=== PATIENT | female | born 1940 | race Caucasian/White ===

== ENCOUNTER → 2016-11-24 | Outpatient (CLI) | payer BC ==
[~2016-11-24] MED LIST: ACET325T96 PO; AMIN1TAB PO; CRD200 PO; DOCU100C31 PO; ENOX40IN SQ; LEVO75TA5 PO; OXYC-57 PO; PRLSR20 PO; SENN-61 PO; TRAM-10 PO
[2016-11-24 12:07] LABS: BASO % 0.2 %; BASO ABS # 0.01 K/uL (0-0.2); COMPLETE YES; EOS % 2.1 %; HEMATOCRIT 39.2 % (37-47); IG% 0.2 %; LYMPH % 22.7 %; LYMPH ABS # 0.96 K/uL (1.2-3.4); MEAN CELL VOLUME 93.6 fL (80-100); MEAN CORPUSCULAR HEMOGLOBIN 30.8 pg (25-34); MEAN CORPUSCULAR HGB CONC 32.9 g/dl (32-36); MEAN PLATELET VOLUME 11.4 fL (7.4-10.4); MONO % 16.1 %; NEUT % 58.7 %; PLATELET COUNT 144 K/uL (130-400); RED BLOOD COUNT 4.19 M/uL (4.2-5.4); WHITE BLOOD COUNT 4.23 K/uL (4.8-10.8)
[2016-11-24 12:42] LABS: AST/SGOT 15 U/L (15-37); BLOOD UREA NITROGEN 30 mg/dl (7-18); BUN/CREATININE RATIO 38.3 (10-20); CALCIUM 8.6 mg/dl (8.5-10.1); CARBON DIOXIDE 29 mmol/L (21-32); CHLORIDE 97 mmol/L (98-107); CREATININE 0.78 mg/dl (0.60-1.20); GLUCOSE 78 mg/dl (70-99); POTASSIUM 4.8 mmol/L (3.5-5.1); SODIUM 135 mmol/L (136-145)
[2016-11-24 12:52] LABS: ALB/GLOB RATIO 1.1 (0.9-2); ALKALINE PHOSPHATASE 76 U/L (45-117); ALT/SGPT 17 U/L (12-78)
--- NOTE | 2016-11-28 09:44 | CODING QUERY MEDICAL NECESSITY ---
SUPPORTING DIAGNOSIS NEEDED Dr. German, A supporting diagnosis is required for the test/procedure performed on this patient in order for us to be reimbursed by the patient's insurance. Please provide a supporting diagnosis for the following test/procedure listed below next to the test name along with your signature. *If there is no additional diagnosis for this patient that would support the following test/procedure please document that below next to the test/procedure. Test(s)/Procedure(s) that require a supporting diagnosis: * ([id number]) VITAMIN D ASSAY DIAGNOSIS: DATE OF SERVICE: 11/24/16 Provider Signature: Date: Thank you [facility] Information Management Once completed, please kindly fax back to [phone] For questions please call [phone]
== END | disposition home or self-care (01) ==
LOC: C.LAB 10:41
PROVIDERS: ATTEND Internal Medicine
DX: M85.80 Other specified disorders of bone density and structure, unspecified site (principal); E55.9 Vitamin D deficiency, unspecified

== ENCOUNTER → 2017-05-14 | Outpatient (CLI) | payer BC ==
[2017-05-14 12:33] LABS: BLOOD UREA NITROGEN 23 mg/dl (7-18); CALCIUM 8.6 mg/dl (8.5-10.1); CARBON DIOXIDE 31 mmol/L (21-32); CHLORIDE 92 mmol/L (98-107); CREATININE 0.71 mg/dl (0.60-1.20); GLUCOSE 89 mg/dl (70-99); POTASSIUM 4.1 mmol/L (3.5-5.1); SODIUM 127 mmol/L (136-145)
== END | disposition home or self-care (01) ==
LOC: C.LAB1850 10:08
PROVIDERS: ATTEND Internal Medicine
DX: E55.9 Vitamin D deficiency, unspecified (principal)

== ENCOUNTER → 2017-11-24 | Outpatient (CLI) | payer BC ==
[~2017-11-24] MED LIST changes: +ACET-1693 PO; -ACET325T96 PO
[2017-11-24 10:24] LABS: BASO % 0.2 %; BASO ABS # 0.01 K/uL (0-0.2); EOS % 3.3 %; EOS ABS # 0.15 K/uL (0-0.5); HEMATOCRIT 40.5 % (37-47); HEMOGLOBIN 13.1 g/dL (12.0-16.0); IG# 0.01 K/uL (0.00-0.02); LYMPH % 20.2 %; LYMPH ABS # 0.91 K/uL (1.2-3.4); MEAN CELL VOLUME 89.6 fL (80-100); MEAN CORPUSCULAR HGB CONC 32.3 g/dl (32-36); MEAN PLATELET VOLUME 10.2 fL (7.4-10.4); MONO % 14.9 %; MONO ABS # 0.67 K/uL (0.11-0.59); NEUT % 61.2 %; NEUT ABS # 2.75 K/uL (1.4-6.5); PLATELET COUNT 181 K/uL (130-400); RED CELL DISTRIBUTION WIDTH SD 45.7 fL (36.4-46.3)
[2017-11-24 11:02] LABS: ALBUMIN 3.5 gm/dl (3.4-5.0); ALT/SGPT 13 U/L (12-78); AST/SGOT 11 U/L (15-37); BLOOD UREA NITROGEN 25 mg/dl (7-18); CALCIUM 8.9 mg/dl (8.5-10.1); CARBON DIOXIDE 30 mmol/L (21-32); CREATININE 0.59 mg/dl (0.60-1.20); GLUCOSE 79 mg/dl (70-99); POTASSIUM 4.1 mmol/L (3.5-5.1); SODIUM 129 mmol/L (136-145); TOTAL PROTEIN 7.4 gm/dl (6.4-8.2)
[2017-11-24 11:16] LABS: ALKALINE PHOSPHATASE 109 U/L (45-117)
== END | disposition home or self-care (01) ==
LOC: C.LAB 09:31
PROVIDERS: ATTEND Internal Medicine
DX: R53.81 Other malaise (principal); E53.8 Deficiency of other specified B group vitamins

== ENCOUNTER 2020-02-10 08:15 | Observation (INO) ==
--- NOTE | 2020-02-10 08:37 | Emergency Department Note ---
Impression & Plan Large bowel obstruction, Abdominal pain, Thrombocytopenia, Chronic hyponatremia, Elevated INR ED Provider Note NAME: NATALYA LORENZO AGE: 79 SEX: F ARRIVES VIA: Walk-In INFORMANT: Patient, ED PROVIDER(S): Jaren Lyn MD CHIEF COMPLAINT: Abdominal pain PLAN: Disposition: Admit MEDICAL DECISION MAKING: The patient is a pleasant 79-year-old woman with a past medical history of hypertension, chronic hyponatremia, hypothyroidism, history of MRSA bacteremia with left knee prosthesis infection and mitral valve endocarditis in 2013 status post mitral valve replacement with [facility] bioprosthetic valve in 09/2014, history of dementia who presents emergency department coming by her for evaluation of abdominal pain began acutely last night and into this morning. The denies any nausea or vomiting. He reports she had a normal bowel movement this morning was nonbloody nonblack. Denies Fever, cough, congestion, urinary symptoms. On arrival the patient is uncomfortable no acute distress, afebrile stable vital signs. The patient appears clinically dry. She does have a distended abdomen that is tympanitic with moderate tenderness without guarding or rebound. EKG without evidence of acute ischemia. CXR demonstrates distension of large bowel. WBC 4.2. H/H within normal limits. Platelets 94K decreased from recent values. INR 2.0 which could be related to vitamin K deficiency poor nutrition versus component of liver injury with total bilirubin 2.2 and direct bilirbuin 0.9 though AST, ALT, and AP are unremarkable. Troponin negative/undetectable. CT abdomen pelvis was performed and demonstrated marked distention of large bowel/transverse colon and splenic flexure with apparent transition point of the proximal to mid descending colon without identifiable cause. Case was discussed with general surgery on-call Dr. Reyes, who recommends admission to medicine with GI consultation for possible colonoscopy, will be available for inpatient team consultation however he explains these findings are typically nonsurgical. Recommendations for NG tube appreciated and ordered. I did review the findings with the patient and at the bedside and he does confirm that the patient is DNR/DNI and would have to assess any invasive interventions on a [id number] basis and with discussion with his sons keeping in mind his 's goals of care. Case was discussed with Dr. Stevenson, [facility] [place], who will evaluate the patient for admission. Triage Nursing notes reviewed and agree them. Additional history obtained from Prior medical records reviewed Vital Signs: reviewed and remarkable for no significant abnormalities Differential diagnosis: Appendicitis, ovarian cyst, ovarian torsion, ectopic , TOA, PID, infections, diverticulitis, UTI, obstruction, mesenteric ischemia, aortic pathology, inflammatory bowel disease, renal colic, PUD, pancreatitis, biliary pathology, hernia, volvulus, constipation, as well as other pathologies. ER treatment provided: See below. Diagnostics interpreted by me: ECG: Normal sinus rhythm with First degree AVB, 82bpm, Incomplete RBBB, no ectopy, no overt ST elevation or depression. Cardiac Monitoring: An order for continuous cardiac monitoring was placed and demonstrated, 82 bpm, No ectopy. Laboratory studies: See below Imaging studies: XR chest 1V portable CLINICAL HISTORY: 79 years-old Female presenting with Chest Pain. TECHNIQUE: Portable upright AP view of the chest was obtained. COMPARISON: 11/15/2014. FINDINGS: Significant elevation of the right hemidiaphragm which was likely present on the prior exam. Elevation of the left hemidiaphragm as on prior. Resulting low lung volumes. Median sternotomy wires. Atherosclerosis of the aortic arch. Cardiac silhouette is likely enlarged. Pulmonary vascular prominence and bilateral hilar prominence suboptimally evaluated due to hemidiaphragm elevation. Mild central added density of the lungs. No large effusion or pneumothorax. Osteopenia. De generative changes of the glenohumeral joints and spine. Severe gaseous distention of large bowel. The appearance is not definitive for pneumoperitoneum. Cholecystectomy clips noted. IMPRESSION: 1. Severe gaseous distention of large bowel suspected. The degree of gas below the diaphragm makes pneumoperitoneum difficult to exclude. If there are abdominal symptoms, consider further evaluation with cross-sectional imaging of the abdomen or pelvis. 2. Low lung volumes. 3. Suspected pulmonary vascular prominence. Some degree of vascular crowding may account for the appearance. 4. Limited evaluation due to the degree of hemidiaphragm elevation. -- CT OF THE ABDOMEN AND PELVIS WITH CONTRAST CLINICAL HISTORY: Acute generalized abdominal pain. COMPARISON STUDY: CT of the abdomen and pelvis July 16, 2015. KUB December 18, 2019. TECHNIQUE: Following IV administration of 94 mL of Optiray-320, axial images of the abdomen and pelvis were obtained from the lung bases to the proximal femurs. Images were reviewed in the axial, sagittal, and coronal planes. IV contrast was administered without complication. Automated exposure control was utilized for the study. A dose lowering technique was utilized adhering to the principles of ALARA. CT DOSE: 379.92 mGy.cm FINDINGS: Note is made of marked elevation of the right hemidiaphragm and moderate elevation of the left hemidiaphragm. Associated lower lung airspace opacities favor atelectasis. There is mild dilatation of the central pulmonary arteries. No pneumatosis, free air or portal venous gas is present. No bowel wall thickening is noted. No ascites. The course of the colon is difficult to follow on this exam however the cecum is likely within the right upper quadrant. No swirling of the mesentery or abrupt transition point is noted to suggest a volvulus. There is marked gaseous distention of the transverse colon measuring approximately 13.2 cm in caliber. There is mild distention of the cecum which contains stool. Apparent transition point within the proximal to mid descending colon is noted without identifiable cause. The caliber of the distal descending colon, sigmoid colon and rectum is normal. There is colonic diverticulosis without evidence for acute diverticulitis. There is minimal mesenteric infiltration. Heterogeneity of the liver parenchyma, particularly the lateral segment, is noted. The spleen, adrenal glands, kidneys and pancreas are unremarkable. There is no hydronephrosis. There is no pancreatic ductal dilatation. Mild dilatation of the main pancreatic duct is likely related to previous cholecystectomy. There is evidence for mild volume overload. Small stones within the left lateral aspect of the bladder are noted. No suspicious osseous lesions are present. Prominent left pelvic lymph nodes have slightly decreased in size since CT of July 16, 2015. These are likely benign. IMPRESSION: 1. Marked gaseous distention of the transverse colon and splenic flexure with apparent transition point within the proximal to mid descending colon without identifiable cause. The findings could reflect a colonic pseudoobstruction or mechanical large bowel obstruction due to an occult abnormality. No pneumatosis, free air or portal venous gas. Minimal mesenteric infiltration. No bowel wall thickening. 2. Heterogeneity of the liver parenchyma, particularly the left hepatic lobe. This may be related to right heart dysfunction. 3. Multiple small bladder calculi. Consultation(s): Dr. Reyes, General surgery on-call. Dr. Stevenson, [facility] [place]. HPI: The patient is a pleasant 79-year-old woman with a past medical history of hypertension, chronic hyponatremia, hypothyroidism, history of MRSA bacteremia with left knee prosthesis infection and mitral valve endocarditis in 2014 status post mitral valve replacement with [facility] Reyes's bioprosthetic valve in 09/2014, history of dementia who presents emergency department coming by her for evaluation of abdominal pain began acutely last night and into this morning. The denies any nausea or vomiting. He reports she had a normal bowel movement this morning was nonbloody nonblack. Denies Fever, cough, congestion, urinary symptoms. ROS: See above HPI for pertinent positives & negatives. A total of 10 systems reviewed and were otherwise negative. PAST MEDICAL HISTORY:See Below PAST SURGICAL HISTORY:See Below FAMILY HISTORY:See Below SOCIAL HISTORY:See Below HOME MEDICATIONS:See Below ALLERGIES:See Below VITALS:See Below PHYSICAL EXAMINATION: GENERAL: Awake, alert, uncomfortable-appearing, in no distress HENT: Normocephalic, atraumatic. Oropharynx with dry mucous membranes and otherwise unremarkable. EYES: Normal conjunctiva. Sclera non-icteric. NECK: Supple. No nuchal rigidity. FROM. No JVD. RESPIRATORY: Clear to auscultation. CARDIAC: Regular rate, normal rhythm. Extremities warm and well perfused. Pulses equal. ABDOMEN: Moderate abdominal distention with moderate tenderness and tympany without rebound or guarding. RECTAL: Deferred. MUSCULOSKELETAL: Chest examination reveals no tenderness. The back is symmet rical on inspection without obvious abnormality. There is no CVA tenderness to palpation. No joint edema. LOWER EXTREMITIES: Calves are equal size bilaterally and non-tender. 2+ BLE edema. No discoloration. NEURO: Normal sensorium. No sensory or motor deficits noted. SKIN: No rash or jaundice noted. Jaren Lyn MD Past Med/Surg History Medical History Debilitated patient (Acute) HTN (hypertension) (Acute) Hypoglycemia (Inactive 06/04/14) Hyponatremia (Acute) Hypothyroidism (Acute) Hypoxia (Inactive 08/28/14) Left leg cellulitis (Inactive) Mild cognitive impairment (Chronic) Teresa-prosthetic femoral shaft fracture (Acute) Pneumonia (Inactive 08/28/14) Proctitis (Inactive) SIRS (systemic inflammatory response syndrome) (Inactive 08/28/14) Urinary tract infection (Resolved) Vitamin B12 deficiency (dietary) anemia (Acute) Vitamin D deficiency (Acute) Surgical History History of arthroplasty of knee History of cataract surgery History of cholecystectomy History of heart valve replacement Family History Sister Myocardial infarction Mother Diabetes Heart disease Father Heart disease Brother Hypertension Cancer of kidney Social History Preferred Language: Swedish Communication Ability: Effective Communication Ability Comment: history of Alzheimer's 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 Beliefs That Will Affect Care: None marital status: Current Living Situation: Spouse Other Information That Helps Us Care for You: No Feels Safe at Home: Yes Safety Concerns: Feels Safe At This Time Smoking Status: Never smoker Do You Dip or Chew Tobacco: No ; Second Hand Exposure: No ; Tobacco Cessation Education Requested by Patient: No Hx Alcohol Use: No Hx Substance Use: No Allergies Allergies Allergy/AdvReac Type Severity Reaction Status Date / Time trazodone Allergy Mild rash Unverified 02/10/20 10:07 citalopram [From Celexa] Allergy Unknown Unknown Unverified 02/10/20 10:07 clonazepam [From Klonopin] Allergy Unknown Unknown Unverified 02/10/20 10:07 Sulfa (Sulfonamide Allergy Unknown Unknown Unverified 02/10/20 10:07 Antibiotics) olmesartan [From Benicar] AdvReac Mild GI upset Unverified 02/10/20 10:07 penicillin G AdvReac Mild GI UPSET Verified 02/10/20 10:07 Home Meds Home Medications Medication Instructions Recorded Confirmed cholecalciferol (vitamin D3) 50 mcg PO QAM 12/18/19 02/10/20 [Vitamin D3] levothyroxine 75 mcg PO QAM 12/18/19 02/10/20 Results & Data (ED) Vital Signs Vital Signs - 24 hr 02/10/20 08:19 02/10/20 08:44 02/10/20 08:47 Temperature Source Oral Pulse Rate 88 Pulse Rate [Right] 87 Pulse Rate from SpO2 Sensor Respiratory Rate 20 20 Respiratory Effort / Characteristics Non-Labored Spontaneous Respiratory Depth Normal Blood Pressure 208/141 H Blood Pressure [Right Arm] 201/143 H Blood Pressure Mean 163 Blood Pressure Mean [Right Arm] 162 Pulse Oximetry 92 90 Oxygen Delivery Method Room Air Room Air Room Air Sepsis Recent Fever Within 48 Hours No Sepsis Action Taken by Nursing No Action Required 02/10/20 09:33 02/10/20 10:31 02/10/20 11:00 Temperature Source Pulse Rate 72 Pulse Rate [Right] 84 74 Pulse Rate from SpO2 Sensor 72 Respiratory Rate 16 16 14 Respiratory Effort / Characteristics Respiratory Depth Blood Pressure 145/63 H Blood Pressure [Right Arm] 154/88 H 143/90 H Blood Pressure Mean 88 Blood Pressure Mean [Right Arm] 110 107 Pulse Oximetry 100 Oxygen Delivery Method Sepsis Recent Fever Within 48 Hours Sepsis Action Taken by Nursing 02/10/20 11:30 02/10/20 12:00 Temperature Source Pulse Rate 69 68 Pulse Rate [Right] Pulse Rate from SpO2 Sensor 69 68 Respiratory Rate 11 L 22 Respiratory Effort / Characteristics Respiratory Depth Blood Pressure 107/58 L 127/72 Blood Pressure [Right Arm] Blood Pressure Mean 78 91 Blood Pressure Mean [Right Arm] Pulse Oximetry 100 99 Oxygen Delivery Method Sepsis Recent Fever Within 48 Hours Sepsis Action Taken by Nursing Laboratory Data Attestation: I reviewed the patient's lab results. Result diagrams: 02/10/20 08:40 02/10/20 08:40 Lab Results 02/10/20 02/10/20 02/10/20 Range/Units 08:40 08:40 08:40 WBC 4.22 L (4.8-10.8) K/uL RBC 4.85 (4.2-5.4) M/uL Hgb 14.4 (12.0-16.0) g/dL Hct 42.9 (37-47) % MCV 88.5 (80-100) fL MCH 29.7 (25-34) pg MCHC 33.6 (32-36) g/dL RDW Std Deviation 47.7 H (36.4-46.3) fL RDW Coeff of Grayson 14.7 H (11.5-14.5) % Plt Count 94 L (130-400) K/uL MPV 12.4 H (7.4-10.4) fL Immature Gran % (Auto) 0.0 % Neut % (Auto) 50.1 % Lymph % (Auto) 30.8 % Berks % (Auto) 18.2 % Eos % (Auto) 0.9 % Baso % (Auto) 0.0 % Immature Gran # (Auto) 0.00 (0.00-0.02) K/uL Neut # (Auto) 2.11 (1.4-6.5) K/uL Lymph # (Auto) 1.30 (1.2-3.4) K/uL Berks # (Auto) 0.77 H (0.11-0.59) K/uL Eos # (Auto) 0.04 (0-0.5) K/uL Baso # (Auto) 0.00 (0-0.2) K/uL Absolute Nucleated RBC 0.03 H (0-0) K/uL Nucleated RBC % (auto) 0.7 % Platelet Estimate Decreased L (Normal) PT 19.9 H (9.0-12.0) Seconds INR 2.0 H (0.9-1.1) APTT 31.9 H (21.0-31.0) Seconds PTT Ratio 1.1 Sodium 126 L (136-145) mmol/L Potassium 4.3 (3.5-5.1) mmol/L Chloride 89 L (98-107) mmol/L Carbon Dioxide 32 (21-32) mmol/L Anion Gap 5.0 (3-11) BUN 18 (7-18) mg/dl Creatinine 0.56 L (0.6-1.2) mg/dl Est Cr Clr Drug Dosing Not Reportable Est GFR ( Amer) 103.5 Est GFR (Non-Af Amer) 89.3 BUN/Creatinine Ratio 32.0 H (10-20) Glucose 75 (70-99) mg/dl Calcium 9.6 (8.5-10.1) mg/dl Phosphorus 2.6 (2.5-4.9) mg/dl Magnesium 1.9 (1.8-2.4) mg/dl Total Bilirubin 2.2 H (0.2-1) mg/dl Direct Bilirubin 0.9 H (0-0.2) mg/dl AST 18 (15-37) U/L ALT 12 (12-78) U/L Alkaline Phosphatase 100 (45-117) U/L Troponin I < 0.015 (0-0.045) ng/ml Total Protein 8.1 (6.4-8.2) gm/dl Albumin 4.1 (3.4-5.0) gm/dl Globulin 4.0 (2.5-4.0) gm/dl Albumin/Globulin Ratio 1.0 (0.9-2) Lipase 55 L (73-393) U/L Administered Medications Heparin Sodium (Porcine) (Heparin Sodium (Porcine)) 5,000 units SQ Q12 NAGA Stop: 03/11/20 20:59 Last Admin: 02/10/20 21:43 Dose: 5,000 units Documented by: [id number] Cosigned by: [id number] Sodium Chloride (Nss 1000ml) 1,000 mls @ 80 mls/hr IV .[id number] NAGA Stop: 03/11/20 13:43 Last Admin: 02/10/20 14:02 Dose: 80 mls/hr Documented by: [id number] Discontinued Medications Sodium Chloride (Nss) 500 mls @ 999 mls/hr IV .[id number] ONE Stop: 02/10/20 09:16 Last Infusion: 02/10/20 10:45 Dose: 0 mls/hr Documented by: [id number] Admin: 02/10/20 09:29 Dose: 999 mls/hr Documented by: [id number] Famotidine (Pepcid 20mg Iv Push) 20 mg in 5 mls @ 2.5 mls/min IV NOW STA Stop: 02/10/20 08:47 Last Admin: 02/10/20 09:29 Dose: 2.5 mls/min Documented by: [id number] [facility]amin[facility] 1,000 mg in 100 mls @ 400 mls/hr IV NOW STA Stop: 02/10/20 09:00 Last Infusion: 02/10/20 09:48 Dose: 0 mls/hr Documented by: [id number] Admin: 02/10/20 09:29 Dose: 400 mls/hr Documented by: [id number] Phytonadione 5 mg/ Sodium (Chloride) 50.5 mls @ 101 mls/hr IV ONE ONE Stop: 02/10/20 14:13 Last Infusion: 02/10/20 15:00 Dose: 0 mls/hr Documented by: [id number] Admin: 02/10/20 14:02 Dose: 101 mls/hr Documented by: [id number] Ioversol (Optiray 320 100ml) 94 ml IV ONCE PRN PRN Reason: Interaction Checking Stop: 05/12/20 10:15 Last Admin: 02/10/20 10:17 Dose: 94 ml Documented by: [id number] Ondansetron HCl (Zofran) 4 mg IV NOW STA Stop: 02/10/20 08:47 Last Admin: 02/10/20 09:29 Dose: 4 mg Documented by: [id number] Blood Pressure Blood Pressure Findings: Elevated blood pressure Blood Pressure Disposition: further management by hospitalist Discharge Plan Visit Data *Final* Discharge Date/Time: 02/10/20 13:28 Chief Complaint: Abdominal Pain Stated Complaint: stomach pain ED Provider: Jaren Lyn Discharge Problem: Large bowel obstruction, Abdominal pain, Thrombocytopenia, Chronic hyponatremia, Elevated INR Patient Disposition: Admitted As Inpatient Discharge Instructions Interventions: ED Discharge Assessment Last Done: 02/10/20 13:28
[2020-02-10] MEDS ORDERED: FAMOTIDINE 20MG IV PUSH 20 MG/5 ML SYR IV STA (08:46)
[2020-02-10] MEDS ORDERED: ACETAMINOPHEN 1,000 MG/100 ML VIAL IV STA (08:46)
[2020-02-10] MEDS ORDERED: ONDANSETRON INJ 2 MG/ML 2 ML VIAL IV STA (08:46)
[2020-02-10] MEDS ORDERED: SODIUM CHLORIDE 0.9% 500 ML IV ONE (08:46)
--- NOTE | 2020-02-10 09:03 | XRay Report ---
XR chest 1V portable CLINICAL HISTORY: 79 years-old Female presenting with Chest Pain. TECHNIQUE: Portable upright AP view of the chest was obtained. COMPARISON: 11/15/2014. FINDINGS: Significant elevation of the right hemidiaphragm which was likely present on the prior exam. Elevatio n of the left hemidiaphragm as on prior. Resulting low lung volumes. Median sternotomy wires. Atheros clerosis of the aortic arch. Cardiac silhouette is likely enlarged. Pulmonary vascular prominence and bilateral hilar prominence suboptimally evaluated due to hemidiaphragm elevation. Mild central added density of the lungs. No large effusion or pneumothorax. Osteopenia. Degenerative changes of the gle nohumeral joints and spine. Severe gaseous distention of large bowel. The appearance is not definitiv e for pneumoperitoneum. Cholecystectomy clips noted. IMPRESSION: 1. Severe gaseous distention of large bowel suspected. The degree of gas below the diaphragm makes p neumoperitoneum difficult to exclude. If there are abdominal symptoms, consider further evaluation wi th cross-sectional imaging of the abdomen or pelvis. 2. Low lung volumes. 3. Suspected pulmonary vascular prominence. Some degree of vascular crowding may account for the luis earance. 4. Limited evaluation due to the degree of hemidiaphragm elevation. ACT 112: Negative or not required by law. Electronically signed by: Shane Moncada M.D. 02/10/2020 9:02 AM
[2020-02-10 09:15] LABS: Alanine Aminotransferase 12 U/L (12-78); Albumin Level 4.1 gm/dl (3.4-5.0); Aspartate Aminotransferase 18 U/L (15-37); Bilirubin Direct 0.9 mg/dl (0-0.2); Blood Urea Nitrogen 18 mg/dl (7-18); Calcium 9.6 mg/dl (8.5-10.1); Carbon Dioxide 32 mmol/L (21-32); Chloride 89 mmol/L (98-107); Est GFR (African American) 103.5; Est GFR (Non-African American) 89.3; Glucose 75 mg/dl (70-99); Lipase 55 U/L (73-393); Magnesium 1.9 mg/dl (1.8-2.4); Partial Thromboplastin Ratio 1.1; Partial Thromboplastin Time 31.9 Seconds (21.0-31.0); Potassium 4.3 mmol/L (3.5-5.1); Prothrombin Time 19.9 Seconds (9.0-12.0); Sodium 126 mmol/L (136-145)
[2020-02-10 09:18] LABS: Alkaline Phosphatase 100 U/L (45-117); Bilirubin,Total 2.2 mg/dl (0.2-1); Phosphorus 2.6 mg/dl (2.5-4.9); Total Protein 8.1 gm/dl (6.4-8.2); Troponin I < 0.015 ng/ml (0-0.045)
[2020-02-10 09:57] LABS: Eosinophils # (auto) 0.04 K/uL (0-0.5); Eosinophils % (auto) 0.9 %; Hematocrit (blood only) 42.9 % (37-47); Hemoglobin 14.4 g/dL (12.0-16.0); Lymphocytes % (auto) 30.8 %; Mean Corpuscular Hemoglobin 29.7 pg (25-34); Mean Corpuscular Hgb Conc 33.6 g/dL (32-36); Mean Corpuscular Volume 88.5 fL (80-100); Mean Platelet Volume 12.4 fL (7.4-10.4); Monocytes # (auto) 0.77 K/uL (0.11-0.59); Monocytes % (auto) 18.2 %; Neutrophils # (auto) 2.11 K/uL (1.4-6.5); Neutrophils % (auto) 50.1 %; Nucleated RBC # (auto) 0.03 K/uL (0-0); Nucleated RBC % (auto) 0.7 %; Platelet Count 94 K/uL (130-400); Platelet Estimate Decreased (Normal); RDW Coefficient of Variation 14.7 % (11.5-14.5); RDW Standard Deviation 47.7 fL (36.4-46.3); Red Blood Count 4.85 M/uL (4.2-5.4); White Blood Count 4.22 K/uL (4.8-10.8)
[2020-02-10] MEDS ORDERED: IOVERSOL 100ml IV PRN (10:16)
--- NOTE | 2020-02-10 11:09 | CT Scan Report ---
CT OF THE ABDOMEN AND PELVIS WITH CONTRAST CLINICAL HISTORY: Acute generalized abdominal pain. COMPARISON STUDY: CT of the abdomen and pelvis July 16, 2015. KUB December 18, 2019. TECHNIQUE: Following IV administration of 94 mL of Optiray-320, axial images of the abdomen and pelvi s were obtained from the lung bases to the proximal femurs. Images were reviewed in the axial, sagitt al, and coronal planes. IV contrast was administered without complication. Automated exposure contro l was utilized for the study. A dose lowering technique was utilized adhering to the principles of A IRVING. CT DOSE: 379.92 mGy.cm FINDINGS: Note is made of marked elevation of the right hemidiaphragm and moderate elevation of the l eft hemidiaphragm. Associated lower lung airspace opacities favor atelectasis. There is mild dilatati on of the central pulmonary arteries. No pneumatosis, free air or portal venous gas is present. No brien wel wall thickening is noted. No ascites. The course of the colon is difficult to follow on this exam however the cecum is likely within the right upper quadrant. No swirling of the mesentery or abrupt transition point is noted to suggest a volvulus. There is marked gaseous distention of the transverse colon measuring approximately 13.2 cm in caliber. There is mild distention of the cecum which contai ns stool. Apparent transition point within the proximal to mid descending colon is noted without iden tifiable cause. The caliber of the distal descending colon, sigmoid colon and rectum is normal. There is colonic diverticulosis without evidence for acute diverticulitis. There is minimal mesenteric inf iltration. Heterogeneity of the liver parenchyma, particularly the lateral segment, is noted. The spl een, adrenal glands, kidneys and pancreas are unremarkable. There is no hydronephrosis. There is no p ancreatic ductal dilatation. Mild dilatation of the main pancreatic duct is likely related to previou s cholecystectomy. There is evidence for mild volume overload. Small stones within the left lateral a spect of the bladder are noted. No suspicious osseous lesions are present. Prominent left pelvic lymp h nodes have slightly decreased in size since CT of July 16, 2015. These are likely benign. IMPRESSION: 1. Marked gaseous distention of the transverse colon and splenic flexure with apparent transition poi nt within the proximal to mid descending colon without identifiable cause. The findings could reflect a colonic pseudoobstruction or mechanical large bowel obstruction due to an occult abnormality. No p neumatosis, free air or portal venous gas. Minimal mesenteric infiltration. No bowel wall thickening. 2. Heterogeneity of the liver parenchyma, particularly the left hepatic lobe. This may be related to right heart dysfunction. 3. Multiple small bladder calculi. ACT 112: Negative or not required by law. Electronically signed by: Lazaro Guzman M.D. 02/10/2020 11:08 AM
[2020-02-10] MEDS ORDERED: PHYTONADIONE 5 MG in SODIUM CHLORIDE 0.9% 50 ML IV ONE (13:44)
[2020-02-10] MEDS ORDERED: ACETAMINOPHEN 1,000 MG/100 ML VIAL IV PRN (13:44)
[2020-02-10] MEDS ORDERED: MoRPHine SULFATE 2 MG/ML CARP IV PRN (13:44)
[2020-02-10] MEDS ORDERED: ONDANSETRON INJ 2 MG/ML 2 ML VIAL IV PRN (13:44)
[2020-02-10] MEDS: SODIUM CHLORIDE 0.9% 1000ML 1,000 ML IV SCH (14:02)
--- NOTE | 2020-02-10 15:47 | History & Physical Report ---
Date of Service February 10, 2020 Assessment & Plan (1) Large bowel obstruction: CT a/p on 02/09 shows a transition point at the proximal descending colon, representing colonic pseudoobstruction or mechanical large bowel obstruction. From 's report and ED visit in 12/2019, this seems like it may have been going on for several months with her BMs representing whatever could pass the obstruction. - Concerning for colonic malignancy as she has never had a colonoscopy per the . - NG tube ordered - low, intermittent suction - NPO apart from sips & chips; no meds - Pain & nausea control - GI consulted -> has large focus on comfort and avoiding invasive procedures. He is not sure he would even want a colonoscopy, let alone surgery. - Palliative care consulted given 's overarching goals. (2) Parenchymal liver disease: CT a/p on 02/09 shows "heterogeneity of the liver parenchyma" which could be related to right heart dysfunction. I do wonder if this could also be related to metastasis if she has a colon cancer causing her obstruction. - Indications on labs of liver dysfunction -> INR 2.0, plts 94, though AST/ALT are 18/12. Tbili elevated. - Given poor nutritional status, given vitamin K 5 mg IV once on admission - Trend CMP, INR - Will get liver ultrasound (3) Hyponatremia: Has long-standing baseline hyponatremia of unknown origin. and patient have declined evaluation in the past. - Urine osms - Monitor (4) HTN (hypertension): BP is 160/90 presently. Not on home meds. - Treat extreme HTN (SBP > 180 or DBP > 110) (5) Hypothyroidism: No indication of hyper-/hypothyroidism. TSH was 2.0 in 11/2019. - Continue home levothyroxine 50 mcg when able (6) Dementia: Per , at baseline she often forgets where she is (even at home). She cannot feed herself anymore. Per his report, dementia seems very advanced. He and his have declined evaluation for it. 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 - No acute concerns (8) DVT prophylaxis: Heparin 5000 units Q12h Admission and Anticipated Discharge Date Admission Date: February 10, 2020 History of Present Illness Primary Care Provider: Shane German MD 79yo W w/ advanced dementia who presents for abdominal pain and diarrhea. Per her , she has had a poor appetite for approx. 1 month. She was seen in the ED in 12/2019 for constipation, after not having a BM for approx. 2 weeks. During that evaluation, she had a KUB which did not show any concerning f indings, and she was discharged. Since then, she has continued to fair poorly at home and really still only eats 1/4 or less of what her considers a normal meal. He notes that she continues to have a soft, non-formed BM about once every week. He denies any blood or melena in the stool. He notes she had a BM last night that was consistent with her usual. Around 6am this morning, the patient reported abdominal pain to her . He reports she was unable to specify where the pain was, but just motioned "all over" the belly. Given her distress, she was unable to qualify the pain or s pecify how severe it was. He notes that she also sometimes gets shortness of breath when getting up and getting around in the morning. On my exam, the patient was obtunded and unable to be aroused even with verbal and physical stimuli. Allergies Allergy/AdvReac Type Severity Reaction Status Date / Time trazodone Allergy Mild rash Unverified 02/10/20 10:07 citalopram [From Celexa] Allergy Unknown Unknown Unverified 02/10/20 10:07 clonazepam [From Klonopin] Allergy Unknown Unknown Unverified 02/10/20 10:07 Sulfa (Sulfonamide Allergy Unknown Unknown Unverified 02/10/20 10:07 Antibiotics) olmesartan [From Benicar] AdvReac Mild GI upset Unverified 02/10/20 10:07 penicillin G AdvReac Mild GI UPSET Verified 02/10/20 10:07 Home Medications Home Medications Medication Instructions Recorded Confirmed Type cholecalciferol (vitamin D3) 50 mcg PO QAM 12/18/19 02/10/20 History [Vitamin D3] levothyroxine 75 mcg PO QAM 12/18/19 02/10/20 History Past Med/Surg History Medical History Debilitated patient (Acute) HTN (hypertension) (Acute) Hypoglycemia (Inactive 06/04/14) Hyponatremia (Acute) Hypothyroidism (Acute) Hypoxia (Inactive 08/28/14) Left leg cellulitis (Inactive) Mild cognitive impairment (Chronic) Teresa-prosthetic femoral shaft fracture (Acute) Pneumonia (Inactive 08/28/14) Proctitis (Inactive) SIRS (systemic inflammatory response syndrome) (Inactive 08/28/14) Urinary tract infection (Resolved) Vitamin B12 deficiency (dietary) anemia (Acute) Vitamin D deficiency (Acute) Surgical History History of arthroplasty of knee History of cataract surgery History of cholecystectomy History of heart valve replacement Family History Sister Myocardial infarction Mother Diabetes Heart disease Father Heart disease Brother Hypertension Cancer of kidney Social History Preferred Language: Swedish Communication Ability: Effective Communication Ability Comment: history of Alzheimer's 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 Beliefs That Will Affect Care: None marital status: Current Living Situation: Spouse Other Information That Helps Us Care for You: No Feels Safe at Home: Yes Safety Concerns: Feels Safe At This Time Smoking Status: Never smoker Do You Dip or Chew Tobacco: No ; Second Hand Exposure: No ; Tobacco Cessation Education Requested by Patient: No Hx Alcohol Use: No Hx Substance Use: No Review of Systems Review of Systems: Unobtainable due to cognitive status and Unobtainable due to reduced consciousness Physical Exam Constitutional: WD/WN, vitals as above + acute distress and + lethargic Eyes: EOM intact bilaterally; no conjunctival abnormality ENMT: external ear and nose normal, oropharynx normal Neck: trachea midline, no thyromegaly normal visual inspection Respiratory: normal respiratory effort, lungs clear to auscultation no respiratory distress Cardiovascular: RRR, no murmur, no edema Gastrointestinal (Abdomen): Inspection/Auscultation: + abdomen distended and + hypoactive bowel sounds Percussion/Palpation: abdomen soft; abdomen nontender, no guarding and abdomen not rigid Musculoskeletal: no cyanosis or clubbing, extremities motor strength 5/5 Skin: no rashes, warm and dry Neurologic: moves all extremities and awake Psychiatric: Orientation: alert, oriented to person and cooperative Results & Data Results & Data ([facility]) Vital Signs (Past 12 Hours) Vital Signs Pulse Pulse Resp BP BP Pulse Ox 02/10/20 13:30 74 20 187/71 H 95 02/10/20 13:01 96 H 21 93/34 L 95 02/10/20 13:00 63 15 92 02/10/20 12:31 63 16 98/48 L 94 02/10/20 12:00 68 22 127/72 99 02/10/20 11:30 69 11 L 107/58 L 100 02/10/20 11:00 72 14 145/63 H 100 02/10/20 10:31 74 16 143/90 H 02/10/20 09:33 84 16 154/88 H 02/10/20 08:44 87 20 201/143 H 90 02/10/20 08:19 88 20 208/141 H 92 Code Status & VTE Plan VTE Prophylaxis Plan VTE Prophylaxis will be ordered: Yes PG Care Time/CCT Total # of Minutes Spent Total Time Spent with Patient: Total time spent is greater than 50% in coordination of care (as documented) at patient's floor/unit and/or counseling patient: Coding Level of Care Code 82208 Initial Inpt Care Lvl 3 Diagnoses Large bowel obstruction K56.609 Parenchymal liver disease K76.9 Hyponatremia E87.1 HTN (hypertension) I10 Hypertension type: essential hypertension Hypothyroidism E03.9 Hypothyroidism type: acquired Dementia F03.90 Mitral valve replaced Z95.2 DVT prophylaxis Z29.9 (1) HTN (hypertension) Hypertension type: essential hypertension Qualified Code(s): I10 - Essential (primary) hypertension (2) Hypothyroidism Hypothyroidism type: acquired Qualified Code(s): E03.9 - Hypothyroidism, unspecified
--- NOTE | 2020-02-10 16:13 | Electrocardiogram Report ---
Test Reason : Blood Pressure : / mmHG Vent. 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
--- NOTE | 2020-02-10 17:20 | Consultation Report ---
DATE OF CONSULTATION: 02/10/2020 GASTROINTESTINAL CONSULTATION NOTE REASON FOR EVALUATION: Colonic distention and elevated bilirubin. HISTORY OF PRESENT ILLNESS: The patient is a 79-year-old from a shelter with mild dementia who presents with a complaint of developing abdominal distention starting yesterday. The patient does not recall when she had her last bowel movement, but states she is urinating without difficulty. The abdominal pain became more painful and she presented to the hospital where an abdominal CT scan showed marked distention of her transverse colon and splenic flexure area. There appeared to be a transition point in the mid descending colon, but there was no obvious lesion in that area on CT. There was no free air in the abdomen. The patient was admitted and had a nasogastric tube placed with suction and GI consultation has been obtained. The patient has isolated bilirubin elevation of 2.2 with 0.9 direct and 1.3 indirect, consistent with Gilbert's; her alkaline phosphatase, AST and ALT are normal. Of note is that the patient has had a cholecystectomy in the past. PAST MEDICAL HISTORY: Remarkable for dementia. She has had mitral valve infection and had a valve replacement with a bioprosthetic valve. She has had bilateral knee replacements. She has hypertension, hypothyroidism, chronic hyponatremia, generally poor nutrition. ALLERGIES: TRAZODONE, CELEXA, KLONOPIN, SULFA, OLMESARTAN AND PENICILLIN G. MEDICATIONS: Vitamin D and levothyroxine. FAMILY HISTORY: Sister had a myocardial infarction. Mother had diabetes, heart disease. Father had heart disease. Brother had hypertension and kidney cancer. REVIEW OF SYSTEMS: Positive for abdominal pain. Otherwise relatively unreliable due to her mild dementia. PHYSICAL EXAMINATION: GENERAL: The patient is lying in bed with nasogastric tube in place with brown discharge in the tube. HEENT: Her conjunctivae are erythematous. CHEST: Shows a sternotomy scar. ABDOMEN: Shows a right upper quadrant scar. There is massive distention of the transverse colon, especially in the right upper quadrant with tympany, but very little tenderness. No lower abdominal distention. EXTREMITIES: Showed cool cyanotic feet with all 4 toes appear to be infected with fungus. NEUROLOGIC: Shows that she has some mild memory loss. IMPRESSION AND PLAN: The patient has marked colonic distention in the transverse and splenic flexure areas with a possible transition point in the descending colon. The patient reports that she has never had a colonoscopy. I am not sure how reliable it is, but she is refusing any form of endoscopic intervention at this time and is listed as a do not resuscitate, do not intubate. At this point, I would recommend getting a CEA to see if it will help diagnostic and prognostically. We will continue nasogastric decompression and repeat her KUB tomorrow morning to see if we made any progress. I will follow the patient during her hospital stay.
--- NOTE | 2020-02-10 17:26 | Ultrasound Report ---
US abdomen limited HISTORY: Pain Liver and biliary system. COMPARISON: None. FINDINGS: Nondiagnostic study due to overlying bowel content IMPRESSION: Nondiagnostic study due to overlying bowel content. ACT 112: Negative or not required by law. The above report was generated using voice recognition software. It may contain grammatical, syntax or spelling errors. Electronically signed by: Yogesh Melgoza M.D. 02/10/2020 5:25 PM
[2020-02-10] MEDS: HEPARIN SOD 5,000 UNIT/0.5 ML VIAL SQ SCH (21:43)
[2020-02-10 22:10] LABS: Appearance Urine Cloudy (Clear); Bacteria Urine Automated 1+ (Negative); Bilirubin Urine Negative (Negative); Blood Urine Trace (Negative); Cast Urine Automated 0 /lpf (0-5); Color Urine Yellow; Epithelial Cell Urine Auto 0-5 /lpf (0-5); Glucose Urine UA Negative (Negative); Ketones Urine Negative (Negative); Leukocyte Esterase Urine Negative (Negative); Nitrite Urine Negative (Negative); Protein Urine Negative (Negative); RBC Urine Automated 0-4 /hpf (0-4); Specific Gravity Urine 1.023 (1.000-1.030); Urobilinogen Urine Negative (Negative)
[2020-02-11] MEDS: SODIUM CHLORIDE 0.9% 1000ML 1,000 ML IV SCH ×2 (02:52→13:59)
[2020-02-11 06:07] LABS: INR 2.4 (0.9-1.1); Prothrombin Time 23.8 Seconds (9.0-12.0)
[2020-02-11 06:10] LABS: Hematocrit (blood only) 35.9 % (37-47); Hemoglobin 11.4 g/dL (12.0-16.0); Mean Corpuscular Hemoglobin 28.9 pg (25-34); Mean Corpuscular Hgb Conc 31.8 g/dL (32-36); Mean Corpuscular Volume 91.1 fL (80-100); Mean Platelet Volume 12.1 fL (7.4-10.4); Nucleated RBC # (auto) 0.03 K/uL (0-0); Nucleated RBC % (auto) 0.9 %; Platelet Count 72 K/uL (130-400); RDW Coefficient of Variation 14.9 % (11.5-14.5); RDW Standard Deviation 50.2 fL (36.4-46.3); Red Blood Count 3.94 M/uL (4.2-5.4); White Blood Count 3.29 K/uL (4.8-10.8)
[2020-02-11 06:45] LABS: BUN Creatinine Ratio 36.2 (10-20); Bilirubin,Total 1.5 mg/dl (0.2-1); Calcium 8.2 mg/dl (8.5-10.1); Creatinine Clr Calc Pharmacy 71.1 ml/min; Est GFR (African American) 113.8; Est GFR (Non-African American) 98.2; Globulin 2.9 gm/dl (2.5-4.0); Magnesium 1.8 mg/dl (1.8-2.4); Potassium 4.2 mmol/L (3.5-5.1); Total Protein 5.9 gm/dl (6.4-8.2)
[2020-02-11] MEDS ORDERED: GLUCOSE 40% GEL 15 GM TUBE PO PRN (06:47)
[2020-02-11] MEDS ORDERED: GLUCOSE 10 TABS/TUBE PO PRN (06:47)
[2020-02-11] MEDS ORDERED: GLUCAGON FOR INJ 1 MG VIAL SQ PRN (06:47)
[2020-02-11] MEDS ORDERED: CARBOHYDRATES FOR HYPOGLYCEMIA PO PRN (06:47)
[2020-02-11] MEDS: DEXTROSE 50% 50 ML SYRINGE IV PRN (06:56)
[2020-02-11] MEDS: HEPARIN SOD 5,000 UNIT/0.5 ML VIAL SQ SCH ×2 (08:10→20:42)
--- NOTE | 2020-02-11 09:58 | XRay Report ---
XR KUB/Abdomen 1 view CLINICAL HISTORY: 79 years-old Female presenting with assess colon distention. TECHNIQUE: Single supine view of the abdomen was obtained. COMPARISON: CT from 02/10/2020 and plain radiograph from 12/18/2019. FINDINGS: Nasogastric tube projects over the body of the stomach with sidehole likely within the gastric lumen. Severe gaseous distention of large bowel greatest in the right abdomen with an apparent diameter of over 14 cm. This is similar to the recent CT. Extensive atherosclerotic calcification. Evaluation for nephrolithiasis limited though none was prese nt on CT. Excretion of contrast in the urinary bladder. Osteopenia. Degenerative changes and scoliotic curvature of the lumbar spine. IMPRESSION: 1. Persistent severe gaseous distention of bowel as on CT performed yesterday. Pseudoobstruction to be considered. ACT 112: Negative or not required by law. Electronically signed by: Shane Moncada M.D. 02/11/2020 9:57 AM
--- NOTE | 2020-02-11 11:25 | Hospitalist Progress Note ---
Date of Service February 11, 2020 Assessment & Plan (1) Large bowel obstruction: CT a/p on 02/09 shows a transition point at the proximal descending colon, representing colonic pseudoobstruction or mechanical large bowel obstruction. From 's report and ED visit in 12/2019, this seems like it may have been going on for several months with her BMs representing whatever could pass the obstruction. * Concerning for colonic malignancy as she has never had a colonoscopy per the . * Continue NPO except sips/chips. No meds * Pain & nausea control * KUB with minimal improvement. Consider pseudobs * CEA 1.5 * GI consulted -> has large focus on comfort and avoiding invasive procedures. He is not sure he would even want a colonoscopy, let alone surgery. After discussion with both patient and , patient agreeable to scope in future. Discussed with GI, Dr. Jaffe, who rec gastrograft enema to obtain better picture prior. Suggestion for percutaneous cecostomy tube under local --- contact general surgery, unable to be done at this facility. Will need to re-evaluate in AM. * Discussed with --> plan to discontinue NGT and place rectal tube * Palliative care consulted given 's overarching goals -- likely will not be seen until thursday * KUB in AM (2) Parenchymal liver disease: * CT a/p on 02/09 shows "heterogeneity of the liver parenchyma" which could be related to right heart dysfunction. I do wonder if this could also be related to metastasis if she has a colon cancer causing her obstruction. * Indications on labs of liver dysfunction -> INR 2.0, plts 94, though AST/ALT are 18/12. T bili down to 1.5 from 2.2 * Given poor nutritional status, given vitamin K 5 mg IV once on admission * Currently, AST/ALT low. INR elevated at 2.4 -- not on any anticoagulant. Platelets low at 72 * Liver ultrasound obtained --> nondiagnostic study due to overlying bowel content. Will need followed up * Concern for DIC, as platelets trending down and INR now 2.4 --> ordered DIC panel * Trend CMP, INR (3) Hyponatremia: * Has long-standing baseline hyponatremia of unknown origin. and patient have declined evaluation in the past. * Urine osms low at 456 * Increase IVF to 100ml/hr * Na improved to 130 from 126 (4) HTN (hypertension): * Stable. Not on any home medications * BP currently 111/61 * Continue to monitor (5) Hypothyroidism: * No indication of hyper-/hypothyroidism. TSH was 2.0 in 11/2019. * Continue home levothyroxine 50 mcg when no longer NPO (6) Dementia: * Cognitive status much improved per nursing and findings during exam * Per , at baseline she often forgets where she is (even at home). She cannot feed herself anymore. Per his report, dementia seems very advanced. He and his have declined evaluation for it. 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 * No acute concerns (8) DVT prophylaxis: * Heparin 5000 units Q12h. * Monitor platelets, low at 72. Dispo: likely to remain inpatient additional 2-3 days. Admission and Anticipated Discharge Date Admission Date: February 10, 2020 Supervising Physician Co-Signing Physician Notes Attending Attestation: Chart reviewed in detail, care plan d/w PA Stella Patton. I agree w/ the collazo components of her documentation. 79yo female w/ dementia - here with large bowel obstruction. KUB x-ray today with massive dilatation. NO improvement to date with NG tube decompression. Appreciate GI consultation. Agree with d/c of NG tube, change to rectal tube. Concerning is the decreasing platelet count and rising INR - DIC?? Due to liver disease? Other? Recommend rechecking coags along with d-dimer, fibrinogen, and fibrin split products. Link Jauregui MD Subjective Patient evaluated at bedside. States she lives with her and would like to go home. She denies ever having had a colonoscopy in the past but states she would be interested in that currently to see if there is a cause for her current obstruction. She denies having had a history of obstruction in the past. She states that she has had some significant irritation to the back of her throat from the tube. She states she has been passing gas, but no BM yet. Denies abdominal pain, fever, chills, chest pain, shortness of breath. Discussed plan with to remove NGT and try a rectal tube. Discussed need for gastrograft enema but that this would not be able to be obtained until Thursday to avoid perforating bowel. Possible that patient may benefit from percutaneous cecostomy under local anesthetic, but at the current moment there is not someone able to do that. Discussed transfer. would like to avoid this. Will trial rectal tube and monitor patient's progress to see next steps. All questions/concerns addressed at this time. Review of Systems Review of Systems: All systems reviewed & are unremarkable except as noted in HPI & below Physical Exam Constitutional: WD/WN, vitals as above + frail appearing; no acute distress Eyes: + anicteric sclerae and PERRL ENMT: external ear and nose normal, oropharynx normal Neck: trachea midline, no thyromegaly Respiratory: normal respiratory effort, lungs clear to auscultation Cardiovascular: Rate/Rhythm: regular rate and regular rhythm Heart Sounds: no murmur Extremities: + edema (trace b/l LE) Gastrointestinal (Abdomen): Inspection/Auscultation: + abdomen distended and + hypoactive bowel sounds Percussion/Palpation: abdomen nontender and no guarding NGT Musculoskeletal: no cyanosis or clubbing, extremities motor strength 5/5 Skin: warm, dry Neurologic: PERRL, EOMI, accommodation nl, no face palsy, no dysarthria Psychiatric: Orientation: alert and oriented x 3 Lymphatic: no cervical or axillary lymphadenopathy Results & Data Results & Data ([facility]) Vital Signs (Past 12 Hours) Vital Signs Temp Pulse Resp BP Pulse Ox 02/11/20 07:24 36.4 C L 77 18 113/71 99 02/11/20 06:02 37.3 C 02/11/20 04:40 36.7 C 02/11/20 04:35 36.7 C PG Care Time/CCT Total # of Minutes Spent Total Time Spent with Patient: Total time spent is greater than 50% in coordination of care (as documented) at patient's floor/unit and/or counseling patient: Prolonged Care Time Prolonged Care Time: Yes Total Prolonged Care Time: 40 Time spent on multiple calls/coordination with , GI, general surgery, as well as with patient. Coding Level of Care Code 49365 Subseq Hosp Care Lvl 3 Diagnoses Large bowel obstruction K56.609 Parenchymal liver disease K76.9 Hyponatremia E87.1 HTN (hypertension) I10 Hypertension type: essential hypertension Hypothyroidism E03.9 Hypothyroidism type: acquired Dementia F03.90 Mitral valve replaced Z95.2 DVT prophylaxis Z29.9 Additional Codes Prolonged Care Time - Prolonged Care Time: Yes ([id number]) (1) Hypothyroidism Hypothyroidism type: acquired Qualified Code(s): E03.9 - Hypothyroidism, unspecified (2) HTN (hypertension) Hypertension type: essential hypertension Qualified Code(s): I10 - Essential (primary) hypertension
--- NOTE | 2020-02-11 12:17 | Progress Notes ---
DATE: 02/11/2020 SUBJECTIVE: The patient reports no significant change in her abdomen; it is still a little tender. Her KUB today shows a massive distention of the colon without a specific cutoff point. OBJECTIVE: Vital signs remained relatively normal. Temperature is 36.4, blood pressure is 113/71, pulse 77, O2 saturation on 2 liters is 99%. CEA is normal at 1.5. On abdominal exam, the colon is markedly distended particularly in the right upper quadrant and very tympanitic, but not really tender. LABORATORY DATA: Her white count is normal at 3.29, actually low. The patient seems to be having a little bit of a change in heart. There has not been any significant reduction in size with NG decompression. At this point, due to the massive distention, I am a little bit leery about putting more air in the colon endoscopically and would opt for a Gastrografin enema first to see if there are signs of any obstruction and then once this is completed, we can decide whether to proceed safely with endoscopic decompression. IMPRESSION: The patient has a massive colonic distention. I have ordered a Gastrografin enema of the left colon to rule out an obstruction, and based on those findings, we may consider endoscopic decompression, obviously that is complicated by the fact that she is not able to take any bowel prep.
[2020-02-11 18:46] LABS: INR 2.2 (0.9-1.1); Partial Thromboplastin Ratio 1.2; Partial Thromboplastin Time 34.1 Seconds (21.0-31.0); Prothrombin Time 22.5 Seconds (9.0-12.0)
[2020-02-11 18:49] LABS: D Dimer 750 ug/L FEU (0-500)
[2020-02-11 19:38] LABS: Fibrinogen < 50 mg/dl (184-400)
[2020-02-12] MEDS: SODIUM CHLORIDE 0.9% 1000ML 1,000 ML IV SCH (02:23)
[2020-02-12 07:05] LABS: INR 2.2 (0.9-1.1); Partial Thromboplastin Ratio 1.2; Partial Thromboplastin Time 34.7 Seconds (21.0-31.0); Prothrombin Time 22.3 Seconds (9.0-12.0)
[2020-02-12 07:24] LABS: Hemoglobin 12.6 g/dL (12.0-16.0); Mean Corpuscular Hemoglobin 30.1 pg (25-34); Mean Corpuscular Hgb Conc 32.3 g/dL (32-36); Mean Corpuscular Volume 93.1 fL (80-100); Mean Platelet Volume 12.2 fL (7.4-10.4); Platelet Count 70 K/uL (130-400); RDW Standard Deviation 50.6 fL (36.4-46.3); Red Blood Count 4.19 M/uL (4.2-5.4); White Blood Count 4.18 K/uL (4.8-10.8)
[2020-02-12 07:32] LABS: Albumin Level 3.1 gm/dl (3.4-5.0); BUN Creatinine Ratio 37.6 (10-20); Bilirubin,Total 2.2 mg/dl (0.2-1); Calcium 8.2 mg/dl (8.5-10.1); Creatinine Clr Calc Pharmacy 85.4 ml/min; Est GFR (African American) 120.8; Est GFR (Non-African American) 104.2; Magnesium 1.7 mg/dl (1.8-2.4); Phosphorus 2.3 mg/dl (2.5-4.9); Potassium 3.9 mmol/L (3.5-5.1); Total Protein 6.1 gm/dl (6.4-8.2)
[2020-02-12] MEDS: DEXTROSE 50% 50 ML SYRINGE IV PRN (07:41)
[2020-02-12 07:51] LABS: Basophils # (auto) 0.01 K/uL (0-0.2); Basophils % (auto) 0.2 %; Eosinophils # (auto) 0.04 K/uL (0-0.5); Giant Platelets 1+; Immature Granulocytes # (auto) 0.01 K/uL (0.00-0.02); Immature Granulocytes % (auto) 0.2 %; Lymphocytes % (auto) 19.1 %; Monocytes # (auto) 0.58 K/uL (0.11-0.59); Monocytes % (auto) 13.9 %; Neutrophils # (auto) 2.74 K/uL (1.4-6.5); Neutrophils % (auto) 65.6 %
[2020-02-12] MEDS: D5W AND NSS 1,000 ML IV SCH ×2 (08:03→19:14)
[2020-02-12] MEDS ORDERED: SODIUM PHOSPHATE 3 MMOL/1 ML INFUSION IV STA (08:26)
[2020-02-12] MEDS: HEPARIN SOD 5,000 UNIT/0.5 ML VIAL SQ SCH ×2 (08:26→19:36)
--- NOTE | 2020-02-12 08:31 | Hospitalist Progress Note ---
Date of Service February 12, 2020 Assessment & Plan (1) Large bowel obstruction: CT a/p on 02/09 shows a transition point at the proximal descending colon, representing colonic pseudoobstruction or mechanical large bowel obstruction. From 's report and ED visit in 12/2019, this seems like it may have been going on for several months with her BMs representing whatever could pass the obstruction. * Concerning for colonic malignancy as she has never had a colonoscopy per the . * Continue NPO except sips/chips. No meds * Pain & nausea control * KUB WITHOUT improvement on 02/10 -- repeat in AM * CEA 1.5. reassuring * GI consulted -> has large focus on comfort and avoiding invasive procedures. He is not sure he would even want a colonoscopy, let alone surgery. After discussion with both patient and , patient agreeable to scope in future. Discussed with GI, Dr. Jaffe, who rec gastrograft enema to obtain better picture prior. Suggestion for percutaneous cecostomy tube under local --- contact general surgery, unable to be done at this facility. Will move forward with gastrogaft enema on 02/12 with possible endoscopic decompression * Palliative care consulted given 's overarching goals -- to be seen Thursday * Discussed with , Michael, who would like to be contacted with updates on his cell at [phone] (2) Parenchymal liver disease: * CT a/p on 02/09 shows "heterogeneity of the liver parenchyma" which could be related to right heart dysfunction. I do wonder if this could also be related to metastasis if she has a colon cancer causing her obstruction. * Indications on labs of liver dysfunction on admission, with INR 2.0, plts 94, though AST/ALT are 18/12. T bili down to 1.5 from 2.2 * Given poor nutritional status, given vitamin K 5 mg IV once on admission * Liver ultrasound obtained --> nondiagnostic study due to overlying bowel content. Will need followed up * Concern for DIC, as platelets trending down and INR up --> ordered DIC panel --> appears to be low grade DIC (fibrinogen low <50, fibrin degradation production >40, Ddimer 750, INR 2.4, PTT 34.7, Plt 72) --> stable --INR currently 2.2, but likely some degree of underlying liver disease -- will need to monitor closely * Trend CMP, INR (3) Hyponatremia: * Has long-standing baseline hyponatremia of unknown origin. and patient have declined evaluation in the past. * Urine osms low at 456 * Increased IVF to 100ml/hr * Na improved to 130 from 126 (4) HTN (hypertension): * Stable. Not on any home medications * BP currently 128/71 * Continue to monitor (5) Hypothyroidism: * No indication of hyper-/hypothyroidism. TSH was 2.0 in 11/2019. * TSH 0.538 * Continue home levothyroxine 50 mcg when no longer NPO (6) Altered mental status: * Pt with underlying dementia. Per outpatient chart, patient did not want further work-up. * Increasingly lethargic this morning. Blood glucose 25. Given dextrose. Added D5 to IVF * RPR, B12, B1, TSH, Lyme ordered * Urine culture growing e.coli although UA did not appear overly dirty --> repeat obtained, which did have epi>> wbc, however given increased confusion, will treat empirically with rocephin an monitor * Improved this afternoon * Continue to monitor (7) Dementia: * Cognitive status much improved per nursing and findings during exam * Per , at baseline she often forgets where she is (even at home). She cannot feed herself anymore. Per his report, dementia seems very advanced. He and his have declined evaluation for it. 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 * No acute concerns (11) DVT prophylaxis: * Heparin 5000 units Q12h. * Monitor platelets, low at 70. Dispo: likely to remain inpatient. Palliative to see on Thursday. Admission and Anticipated Discharge Date Admission Date: February 10, 2020 Supervising Physician Co-Signing Physician Notes Attending Attestation: Chart reviewed in detail, care plan d/w JOSE LUIS Patton. I agree w/ the collazo components of her documentation. 79yo female w/ dementia - here with large bowel obstruction. Cause uncertain. NG tube removed 02/10 due to lack of improvement with such. Rectal tube placed 02/10. Minimal improvement clinically with that. Thrombocytopenia remains in 70s. DIC w/u suggests DIC (and/or liver dysfunction causing coag abnormalities). If DIC present suspect colonic process is causing it. No bleeding at the current time, however. Hypoglycemia this am; now resolved; dextrose containing fluids are on board. Plan is for gastrograffin enema tomorrow to assess anatomy of colon. Prognosis is poor. May ultimately need palliation depending on wishes of . Link Jauregui MD Subjective Patient less responsive this morning. Blood glucose reported at 25 by nursing. Given dextrose and added to IVF. Patient more awake this afternoon. Denies abdominal pain but is distended. She believes she has been passing gas but difficult to assess with rectal tube. Intermittent confusion but continues to voice wishes to go home. Agreeable for study in AM with possible decompression. Denies fever, chills, chest pain, shortness of breath at this time. Denies any other concerns at this time. Updated Michael on plan. Agreeable and awaiting update in AM. Review of Systems Review of Systems: All systems reviewed & are unremarkable except as noted in HPI & below Physical Exam Physical Exam: Constitutional WD/WN, vitals as above + ill appearing, frail appearing; no acute distress. lethargic Eyes + anicteric sclerae and PERRL ENMT external ear and nose normal, oropharynx normal Neck trachea midline, no thyromegaly Respiratory normal respiratory effort, lungs clear to auscultation Cardiovascular Rate/Rhythm: regular rate and regular rhythm Heart Sounds: no murmur Extremities: + edema (trace b/l LE), improved. Gastrointestinal (Abdomen) Inspection/Auscultation: + abdomen distended (less) and + hypoactive bowel sounds Percussion/Palpation: abdomen nontender and no guarding, tympanic to percussion RUQ. rectal tube in place Musculoskeletal no cyanosis or clubbing, extremities motor strength 5/5 Skin warm, dry Neurologic PERRL, EOMI, accommodation nl, no face palsy, no dysarthria Lymphatic no cervical or axillary lymphadenopathy Psychiatric: Orientation: alert, oriented to person, oriented to place and cooperative Results & Data Results & Data ([facility]) Vital Signs (Past 12 Hours) Vital Signs Temp Pulse Resp BP Pulse Ox 02/12/20 07:23 36.2 C L 70 18 153/74 H 100 02/11/20 23:17 36.5 C 69 18 128/71 98 Laboratory Results 02/12/20 02/12/20 02/12/20 Range/Units 10:37 10:19 10:19 WBC (4.8-10.8) K/uL RBC (4.2-5.4) M/uL Hgb (12.0-16.0) g/dL Hct (37-47) % MCV (80-100) fL MCH (25-34) pg MCHC (32-36) g/dL RDW Std Deviation (36.4-46.3) fL RDW Coeff of [place] (11.5-14.5) % Plt Count (130-400) K/uL MPV (7.4-10.4) fL Immature Gran % (Auto) % Neut % (Auto) % Lymph % (Auto) % [place] % (Auto) % Eos % (Auto) % Baso % (Auto) % Immature Gran # (Auto) (0.00-0.02) K/uL Neut # (Auto) (1.4-6.5) K/uL Lymph # (Auto) (1.2-3.4) K/uL [place] # (Auto) (0.11-0.59) K/uL Eos # (Auto) (0-0.5) K/uL Baso # (Auto) (0-0.2) K/uL Giant Platelets PT (9.0-12.0) Seconds INR (0.9-1.1) APTT (21.0-31.0) Seconds PTT Ratio Fibrinogen (184-400) mg/dl Fibrin Degrad Products (<10) mcg/ml D-Dimer (0-500) ug/L FEU Sodium (136-145) mmol/L Potassium (3.5-5.1) mmol/L Chloride (98-107) mmol/L Carbon Dioxide (21-32) mmol/L Anion Gap (3-11) BUN (7-18) mg/dl Creatinine (0.6-1.2) mg/dl Est Cr Clr Drug Dosing ml/min Est GFR ( Amer) Est GFR (Non-Af Amer) BUN/Creatinine Ratio (10-20) Glucose (70-99) mg/dl POC Glucose (70-99) mg/dl Calcium (8.5-10.1) mg/dl Phosphorus (2.5-4.9) mg/dl Magnesium (1.8-2.4) mg/dl Total Bilirubin (0.2-1) mg/dl AST (15-37) U/L ALT (12-78) U/L Alkaline Phosphatase (45-117) U/L Total Protein (6.4-8.2) gm/dl Albumin (3.4-5.0) gm/dl Globulin (2.5-4.0) gm/dl Albumin/Globulin Ratio (0.9-2) Vitamin B1 Pending Vitamin B12 (211-911) pg/ml TSH 0.538 (0.300-4.500) uIu/ml Urine Color Dark Yellow Urine Appearance Clear (Clear) Urine pH 5.0 (4.5-7.5) Ur Specific [place] 1.027 (1.000-1.030) Urine Protein Negative (Negative) Urine Glucose (UA) 2+ H (Negative) Urine Ketones Trace H (Negative) Urine Blood 1+ H (Negative) Urine Nitrite Positive A (Negative) Urine Bilirubin Negative (Negative) Urine Urobilinogen Negative (Negative) Ur Leukocyte Esterase Trace H (Negative) Urine WBC (Auto) 10-30 H (0-5) /hpf Urine RBC (Auto) 5-10 H (0-4) /hpf U Hyaline Cast (Auto) 1-5 (0-5) /lpf U Epithel Cells (Auto) >30 H (0-5) /lpf Urine Bacteria (Auto) 4+ H (Negative) Ur Renal Epithelial Cell Not Reportable RPR Lyme Disease IgG Ab (Negative) Lyme Disease IgM Ab (Negative) 02/12/20 02/12/20 02/12/20 Range/Units 10:19 09:44 09:44 WBC (4.8-10.8) K/uL RBC (4.2-5.4) M/uL Hgb (12.0-16.0) g/dL Hct (37-47) % MCV (80-100) fL MCH (25-34) pg MCHC (32-36) g/dL RDW Std Deviation (36.4-46.3) fL RDW Coeff of [place] (11.5-14.5) % Plt Count (130-400) K/uL MPV (7.4-10.4) fL Immature Gran % (Auto) % Neut % (Auto) % Lymph % (Auto) % [place] % (Auto) % Eos % (Auto) % Baso % (Auto) % Immature Gran # (Auto) (0.00-0.02) K/uL Neut # (Auto) (1.4-6.5) K/uL Lymph # (Auto) (1.2-3.4) K/uL [place] # (Auto) (0.11-0.59) K/uL Eos # (Auto) (0-0.5) K/uL Baso # (Auto) (0-0.2) K/uL Giant Platelets PT (9.0-12.0) Seconds INR (0.9-1.1) APTT (21.0-31.0) Seconds PTT Ratio Fibrinogen (184-400) mg/dl Fibrin Degrad Products (<10) mcg/ml D-Dimer (0-500) ug/L FEU Sodium (136-145) mmol/L Potassium (3.5-5.1) mmol/L Chloride (98-107) mmol/L Carbon Dioxide (21-32) mmol/L Anion Gap (3-11) BUN (7-18) mg/dl Creatinine (0.6-1.2) mg/dl Est Cr Clr Drug Dosing ml/min Est GFR ( Amer) Est GFR (Non-Af Amer) BUN/Creatinine Ratio (10-20) Glucose (70-99) mg/dl POC Glucose (70-99) mg/dl Calcium (8.5-10.1) mg/dl Phosphorus (2.5-4.9) mg/dl Magnesium (1.8-2.4) mg/dl Total Bilirubin (0.2-1) mg/dl AST (15-37) U/L ALT (12-78) U/L Alkaline Phosphatase (45-117) U/L Total Protein (6.4-8.2) gm/dl Albumin (3.4-5.0) gm/dl Globulin (2.5-4.0) gm/dl Albumin/Globulin Ratio (0.9-2) Vitamin B1 Vitamin B12 427 (211-911) pg/ml TSH (0.300-4.500) uIu/ml Urine Color Urine Appearance (Clear) Urine pH (4.5-7.5) Ur Specific [place] (1.000-1.030) Urine Protein (Negative) Urine Glucose (UA) (Negative) Urine Ketones (Negative) Urine Blood (Negative) Urine Nitrite (Negative) Urine Bilirubin (Negative) Urine Urobilinogen (Negative) Ur Leukocyte Esterase (Negative) Urine WBC (Auto) (0-5) /hpf Urine RBC (Auto) (0-4) /hpf U Hyaline Cast (Auto) (0-5) /lpf U Epithel Cells (Auto) (0-5) /lpf Urine Bacteria (Auto) (Negative) Ur Renal Epithelial Cell RPR Pending Lyme Disease IgG Ab Negative (Negative) Lyme Disease IgM Ab Negative (Negative) 02/12/20 02/12/20 02/12/20 Range/Units 07:38 06:03 06:03 WBC (4.8-10.8) K/uL RBC (4.2-5.4) M/uL Hgb (12.0-16.0) g/dL Hct (37-47) % MCV (80-100) fL MCH (25-34) pg MCHC (32-36) g/dL RDW Std Deviation (36.4-46.3) fL RDW Coeff of [place] (11.5-14.5) % Plt Count (130-400) K/uL MPV (7.4-10.4) fL Immature Gran % (Auto) % Neut % (Auto) % Lymph % (Auto) % [place] % (Auto) % Eos % (Auto) % Baso % (Auto) % Immature Gran # (Auto) (0.00-0.02) K/uL Neut # (Auto) (1.4-6.5) K/uL Lymph # (Auto) (1.2-3.4) K/uL [place] # (Auto) (0.11-0.59) K/uL Eos # (Auto) (0-0.5) K/uL Baso # (Auto) (0-0.2) K/uL Giant Platelets PT 22.3 H (9.0-12.0) Seconds INR 2.2 H (0.9-1.1) APTT 34.7 H (21.0-31.0) Seconds PTT Ratio 1.2 Fibrinogen (184-400) mg/dl Fibrin Degrad Products (<10) mcg/ml D-Dimer (0-500) ug/L FEU Sodium 130 L (136-145) mmol/L Potassium 3.9 (3.5-5.1) mmol/L Chloride 96 L (98-107) mmol/L Carbon Dioxide 29 (21-32) mmol/L Anion Gap 5.0 (3-11) BUN 13 (7-18) mg/dl Creatinine 0.35 L (0.6-1.2) mg/dl Est Cr Clr Drug Dosing 85.4 ml/min Est GFR ( Amer) 120.8 Est GFR (Non-Af Amer) 104.2 BUN/Creatinine Ratio 37.6 H (10-20) Glucose 25 L* (70-99) mg/dl POC Glucose 26 L* (70-99) mg/dl Calcium 8.2 L (8.5-10.1) mg/dl Phosphorus 2.3 L (2.5-4.9) mg/dl Magnesium 1.7 L (1.8-2.4) mg/dl Total Bilirubin 2.2 H (0.2-1) mg/dl AST 15 (15-37) U/L ALT 11 L (12-78) U/L Alkaline Phosphatase 72 (45-117) U/L Total Protein 6.1 L (6.4-8.2) gm/dl Albumin 3.1 L (3.4-5.0) gm/dl Globulin 3.0 (2.5-4.0) gm/dl Albumin/Globulin Ratio 1.0 (0.9-2) Vitamin B1 Vitamin B12 (211-911) pg/ml TSH (0.300-4.500) uIu/ml Urine Color Urine Appearance (Clear) Urine pH (4.5-7.5) Ur Specific [place] (1.000-1.030) Urine Protein (Negative) Urine Glucose (UA) (Negative) Urine Ketones (Negative) Urine Blood (Negative) Urine Nitrite (Negative) Urine Bilirubin (Negative) Urine Urobilinogen (Negative) Ur Leukocyte Esterase (Negative) Urine WBC (Auto) (0-5) /hpf Urine RBC (Auto) (0-4) /hpf U Hyaline Cast (Auto) (0-5) /lpf U Epithel Cells (Auto) (0-5) /lpf Urine Bacteria (Auto) (Negative) Ur Renal Epithelial Cell RPR Lyme Disease IgG Ab (Negative) Lyme Disease IgM Ab (Negative) 02/12/20 02/11/20 02/11/20 Range/Units 06:03 17:49 17:49 WBC 4.18 L (4.8-10.8) K/uL RBC 4.19 L (4.2-5.4) M/uL Hgb 12.6 (12.0-16.0) g/dL Hct 39.0 (37-47) % MCV 93.1 (80-100) fL MCH 30.1 (25-34) pg MCHC 32.3 (32-36) g/dL RDW Std Deviation 50.6 H (36.4-46.3) fL RDW Coeff of [place] 15.0 H (11.5-14.5) % Plt Count 70 L (130-400) K/uL MPV 12.2 H (7.4-10.4) fL Immature Gran % (Auto) 0.2 % Neut % (Auto) 65.6 % Lymph % (Auto) 19.1 % [place] % (Auto) 13.9 % Eos % (Auto) 1.0 % Baso % (Auto) 0.2 % Immature Gran # (Auto) 0.01 (0.00-0.02) K/uL Neut # (Auto) 2.74 (1.4-6.5) K/uL Lymph # (Auto) 0.80 L (1.2-3.4) K/uL [place] # (Auto) 0.58 (0.11-0.59) K/uL Eos # (Auto) 0.04 (0-0.5) K/uL Baso # (Auto) 0.01 (0-0.2) K/uL Giant Platelets 1+ PT 22.5 H (9.0-12.0) Seconds INR 2.2 H (0.9-1.1) APTT 34.1 H (21.0-31.0) Seconds PTT Ratio 1.2 Fibrinogen < 50 L* (184-400) mg/dl Fibrin Degrad Products >40 H (<10) mcg/ml D-Dimer 750 H* (0-500) ug/L FEU Sodium (136-145) mmol/L Potassium (3.5-5.1) mmol/L Chloride (98-107) mmol/L Carbon Dioxide (21-32) mmol/L Anion Gap (3-11) BUN (7-18) mg/dl Creatinine (0.6-1.2) mg/dl Est Cr Clr Drug Dosing ml/min Est GFR ( Amer) Est GFR (Non-Af Amer) BUN/Creatinine Ratio (10-20) Glucose (70-99) mg/dl POC Glucose (70-99) mg/dl Calcium (8.5-10.1) mg/dl Phosphorus (2.5-4.9) mg/dl Magnesium (1.8-2.4) mg/dl Total Bilirubin (0.2-1) mg/dl AST (15-37) U/L ALT (12-78) U/L Alkaline Phosphatase (45-117) U/L Total Protein (6.4-8.2) gm/dl Albumin (3.4-5.0) gm/dl Globulin (2.5-4.0) gm/dl Albumin/Globulin Ratio (0.9-2) Vitamin B1 Vitamin B12 (211-911) pg/ml TSH (0.300-4.500) uIu/ml Urine Color Urine Appearance (Clear) Urine pH (4.5-7.5) Ur Specific [place] (1.000-1.030) Urine Protein (Negative) Urine Glucose (UA) (Negative) Urine Ketones (Negative) Urine Blood (Negative) Urine Nitrite (Negative) Urine Bilirubin (Negative) Urine Urobilinogen (Negative) Ur Leukocyte Esterase (Negative) Urine WBC (Auto) (0-5) /hpf Urine RBC (Auto) (0-4) /hpf U Hyaline Cast (Auto) (0-5) /lpf U Epithel Cells (Auto) (0-5) /lpf Urine Bacteria (Auto) (Negative) Ur Renal Epithelial Cell RPR Lyme Disease IgG Ab (Negative) Lyme Disease IgM Ab (Negative) PG Care Time/CCT Total # of Minutes Spent Total Time Spent with Patient: Total time spent is greater than 50% in coordination of care (as documented) at patient's floor/unit and/or counseling patient: Coding Level of Care Code 21964 Subseq Hosp Care Lvl 3 Diagnoses Large bowel obstruction K56.609 Parenchymal liver disease K76.9 Hyponatremia E87.1 HTN (hypertension) I10 Hypertension type: essential hypertension Hypothyroidism E03.9 Hypothyroidism type: acquired Altered mental status R41.82 Dementia F03.90 Hypomagnesemia E83.42 Hypophosphatemia E83.39 Mitral valve replaced Z95.2 DVT prophylaxis Z29.9 (1) Hypothyroidism Hypothyroidism type: acquired Qualified Code(s): E03.9 - Hypothyroidism, unspecified (2) HTN (hypertension) Hypertension type: essential hypertension Qualified Code(s): I10 - Essential (primary) hypertension
[2020-02-12] MEDS ORDERED: SODIUM PHOSPHATE 24 MMOL in SODIUM CHLORIDE 0.9% 500 ML IV ONE (09:00)
[2020-02-12] MEDS ORDERED: MAGNESIUM SULFATE / D5W 1 GM/100 ML BAG IV ONE (09:00)
[2020-02-12 10:54] LABS: Appearance Urine Clear (Clear); Bacteria Urine Automated 4+ (Negative); Bilirubin Urine Negative (Negative); Blood Urine 1+ (Negative); Color Urine Dark Yellow; Epithelial Cell Urine Auto >30 /lpf (0-5); Glucose Urine UA 2+ (Negative); Ketones Urine Trace (Negative); Leukocyte Esterase Urine Trace (Negative); Nitrite Urine Positive (Negative); Protein Urine Negative (Negative); Specific Gravity Urine 1.027 (1.000-1.030); Urobilinogen Urine Negative (Negative)
[2020-02-12 11:01] LABS: Lyme Ab IgG w/WB Rflx Negative (Negative); Lyme Ab IgM w/WB Rflx Negative (Negative)
--- NOTE | 2020-02-12 12:42 | Progress Notes ---
DATE: 02/12/2020 SUBJECTIVE: The patient was little bit unresponsive this morning and her blood sugar was 25. She was given some glucose and is now more responsive. She is not reporting any abdominal pain and yesterday had a nasogastric tube removed as it was not really doing any good and she had a rectal tube placed and today her abdomen seems less distended on physical exam, it is still tympanitic particularly in the right upper quadrant. There is no pain anywhere in the abdomen. OBJECTIVE: VITAL SIGNS: Blood pressure is 177/74, pulse 70, temperature is 36.2. Nasal cannula O2 is 98%. LABORATORY DATA: White count is 4.18. Electrolytes continued to be somewhat of an issue with sodium of 130, phosphorus was low at 2.3, magnesium is low at 1.7, albumin is low at 3.1. The patient is currently receiving D5 half normal with supplementary magnesium and phosphorus. IMPRESSION AND PLAN: The patient continues to have abdominal distention, but less so since placement of the rectal tube. She is scheduled for a Gastrografin enema of the left side of the colon tomorrow to assess the anatomy. Her CEA was normal at 1.5, which is somewhat reassuring. If there is no significant blockage, then we may consider endoscopic decompression if she does not open up. AVANID
[2020-02-12] MEDS: cefTRIAXone SODIUM 2,000 MG in DEXTROSE 5% 50 ML IV SCH (14:32)
[2020-02-12] MEDS ORDERED: HydrALAZINE HCL 20 MG/ML VIAL IV PRN (17:45)
[2020-02-13] MEDS: D5W AND NSS 1,000 ML IV SCH (05:21)
[2020-02-13 05:52] LABS: INR 2.2 (0.9-1.1); Prothrombin Time 22.5 Seconds (9.0-12.0)
[2020-02-13 06:03] LABS: Albumin Level 3.1 gm/dl (3.4-5.0); BUN Creatinine Ratio 25.3 (10-20); Calcium 8.1 mg/dl (8.5-10.1); Creatinine Clr Calc Pharmacy 80.8 ml/min; Est GFR (African American) 118.6; Est GFR (Non-African American) 102.4; Magnesium 1.7 mg/dl (1.8-2.4); Potassium 3.4 mmol/L (3.5-5.1)
[2020-02-13 06:14] LABS: Hematocrit (blood only) 37.5 % (37-47); Mean Corpuscular Hemoglobin 28.8 pg (25-34); Mean Corpuscular Volume 89.9 fL (80-100); RDW Coefficient of Variation 14.6 % (11.5-14.5); RDW Standard Deviation 47.9 fL (36.4-46.3); Red Blood Count 4.17 M/uL (4.2-5.4); White Blood Count 4.19 K/uL (4.8-10.8)
[2020-02-13 06:23] LABS: Albumin Globulin Ratio 0.9 (0.9-2); Bilirubin,Total 1.6 mg/dl (0.2-1); Globulin 3.3 gm/dl (2.5-4.0); Phosphorus 2.4 mg/dl (2.5-4.9); Total Protein 6.4 gm/dl (6.4-8.2)
[2020-02-13 06:47] LABS: Platelet Count 63 K/uL (130-400)
[2020-02-13 06:49] LABS: Eosinophils # (auto) 0.04 K/uL (0-0.5); Lymphocytes # (auto) 0.54 K/uL (1.2-3.4); Lymphocytes % (auto) 12.9 %; Monocytes % (auto) 14.3 %; Neutrophils # (auto) 3.01 K/uL (1.4-6.5); Neutrophils % (auto) 71.8 %
--- NOTE | 2020-02-13 07:55 | XRay Report ---
XR KUB/Abdomen 1 view CLINICAL HISTORY: 79 years-old Female presenting with SBO. TECHNIQUE: Single supine view of the abdomen was obtained. COMPARISON: 02/11/2020. FINDINGS: Severe gaseous distention of large bowel are grossly stable from prior exam. The nasogastric tube has been removed. A mild stool burden is evident in the left:. Mottled lucencies in the right upper quad rant likely relate to stool within the hepatic flexure. Colonic interposition noted. No gross pneumop eritoneum allowing for the severity of gaseous distended bowel. Undistended the loops of small bowel suggested in the right mid abdomen. A rectal tube or Angelo catheter is now in place. Cholecystectomy clips noted. Allowing for bowel gas and stool, no calcifications to suggest nephrolithiasis. Atherosclerosis and t ortuosity of the thoracic aorta. Degenerative changes of the spine. IMPRESSION: 1. Removal of the right pleural drain with placement of a rectal tube or Angelo catheter. 2. Unchanged severe gaseous distention of large bowel. Colonic pseudoobstruction suspected. 3. No radiographic evidence of small bowel obstruction. ACT 112: Negative or not required by law. Electronically signed by: Shane Moncada M.D. 02/13/2020 7:54 AM
[2020-02-13] MEDS: cefTRIAXone SODIUM 2,000 MG in DEXTROSE 5% 50 ML IV SCH (08:45)
--- NOTE | 2020-02-13 11:38 | Fluoroscopy Report ---
SINGLE CONTRAST GASTROGRAFIN ENEMA CLINICAL HISTORY: Left colonic obstruction. COMPARISON STUDY: KUB dated 02/13/2020. Abdominal CT dated 02/10/2020. PROCEDURE: A red rubber catheter was placed in the rectum. Gastrografin was infused into the colon un brennan gravity. The examination is incomplete as the patient could not tolerate or cooperate for the pro cedure. There was only opacification to the level of the distal descending colon. FINDINGS: There is no evidence of mass or stricture involving the rectosigmoid colon or the distal de scending colon on the provided images. There is moderate to advanced sigmoid diverticulosis. Gaseous distention of the right colon is noted on the foamite mixer images. IMPRESSION: 1. Incomplete examination as the patient could not tolerate or cooperate for the procedure. 2. There is no clear evidence of stricture or obstructing mass lesion involving the rectosigmoid. 3. Moderate to advanced sigmoid diverticulosis. Dictated: 02/13/2020 10:12 AM Transcribed: 02/13/2020 10:19 AM Renetta [id number] [email or web address] Electronically signed by: Bon Montano M.D. 02/13/2020 11:37 AM
--- NOTE | 2020-02-13 13:09 | Palliative Care Consultation ---
Date of Consultation February 13, 2020 Assessment & Plan (1) Goals of care, counseling/discussion: -79 year old female patient with PMH dementia, htn, hypothyroidism, vit D def, vit B12 def, and others, presented to the hospital three days ago with c/o abdominal pain and diarrhea, as well as poor appetite for about a month. CT a/p on 02/09 showed a transition point at the proximal descending colon, representing colonic pseudoobstruction or mechanical large bowel obstruction. Patient has never had a colonoscopy per the , this is concerning for malignancy. NG tube and rectal tubes placed for decompression-- abdominal pain reportedly somewhat improved. Patient's CEA is 1.5 which is somewhat reassuring. KUB on 02/10 showed no improvement. GI consulted. Plans are for gastrograft enema on 02/12 with possible endoscopic decompression. KUB this morning 02/12 still shows 14cm distended colon. Patient's has apparently expressed his wishes to focus on comfort and avoid invasive treatments/procedures. He is willing for this procedure to get a better look at patient's anatomy and for comfort reasons. Palliative care is now consulted to discuss goals of care. -Patient seen by palliative MD this afternoon. -Spoke with patient's , Michael, this morning. He confirms that the ov erarching goal is for comfort. His main concern is getting her comfortable in order to bring her home. -We discussed hospice care at length. Michael agrees that his plan is for patient to return home with hospice, regardless of the outcome of this hospitalization. If patient's bowel obstruction is not going to resolve, he does not want invasive surgeries and would want to bring patient home on hospice. Even if patient does somewhat improve, he still wants her to return home on hospice. -Patient's and son who lives with them, have been providing 24/ care for patient at home and plan to continue doing so. SNF is absolutely out of th question per . -It appears that barium enema couldn't be completed this morning. Need to know if endoscopic decompression is going to be done. Discharge home will depend on patient's clinical course. We will continue to follow as needed. -Attending physician and skilled nursing case manager updated. (2) Abdominal pain: (3) Large bowel obstruction: (4) Altered mental status: Supervising Physician Co-Signing Physician Notes Chart reviewed, patient seen and examined. Collaborated with TUNDE Collado. Patient with significant dementia, barium enema study could not be completed- patient did not tolerate. Plan is for discharge home this afternoon with hospice care-rectal tube to be removed per 's request. Patient denied pain or discomfort PE: Patient awake, alert, able to give me her first name only. HEENT: EOMI, mild [place] Respirations: Unlabored, clear breath sounds CV: Regular rate Abdomen: Soft, nontender to palpation Neuro: Severe dementia, oriented to person only Agree with above note, assessment and plan as per TUNDE Collado-patient for discharge this afternoon to home with family with hospice care. History of Present Illness Attending Physician: Antony Akhtar DO History of Present Illness This 79 year old female patient with PMH dementia, htn, hypothyroidism, vit D def, vit B12 def, and others, presented to the hospital three days ago with c/o abdominal pain and diarrhea, as well as poor appetite for about a month. CT a/p on 02/09 showed a transition point at the proximal descending colon, representing colonic pseudoobstruction or mechanical large bowel obstruction. Patient has never had a colonoscopy per the , this is concerning for malignancy. NG tube and rectal tubes placed for decompression-- abdominal pain reportedly somewhat improved. Patient's CEA is 1.5 which is somewhat reassuring. KUB on 02/10 showed no improvement. GI consulted. Plans are for gastrograft enema on 02/12 with possible endoscopic decompression. KUB this morning 02/12 still shows 14cm distended colon. Patient's has apparently expressed his wishes to focus on comfort and avoid invasive treatments/procedures. He is willing for this procedure to get a better look at patient's anatomy and for comfort reasons. Palliative care is now consulted to discuss goals of care. Thank you kindly for this consult. Palliative care team will follow as needed. Allergies Allergy/AdvReac Type Severity Reaction Status Date / Time trazodone Allergy Mild rash Unverified 02/10/20 10:07 citalopram [From Celexa] Allergy Unknown Unknown Unverified 02/10/20 10:07 clonazepam [From Klonopin] Allergy Unknown Unknown Unverified 02/10/20 10:07 Sulfa (Sulfonamide Allergy Unknown Unknown Unverified 02/10/20 10:07 Antibiotics) olmesartan [From Benicar] AdvReac Mild GI upset Unverified 02/10/20 10:07 penicillin G AdvReac Mild GI UPSET Verified 02/10/20 10:07 Home Medications Home Medications Medication Instructions Recorded Confirmed Type cholecalciferol (vitamin D3) 50 mcg PO QAM 12/18/19 02/10/20 History [Vitamin D3] levothyroxine 75 mcg PO QAM 12/18/19 02/10/20 History Patient History Medical History Debilitated patient (Acute) HTN (hypertension) (Acute) Hypoglycemia (Inactive 06/04/14) Hyponatremia (Acute) Hypothyroidism (Acute) Hypoxia (Inactive 08/28/14) Left leg cellulitis (Inactive) Mild cognitive impairment (Chronic) Teresa-prosthetic femoral shaft fracture (Acute) Pneumonia (Inactive 08/28/14) Proctitis (Inactive) SIRS (systemic inflammatory response syndrome) (Inactive 08/28/14) Urinary tract infection (Resolved) Vitamin B12 deficiency (dietary) anemia (Acute) Vitamin D deficiency (Acute) Surgical History History of arthroplasty of knee History of cataract surgery History of cholecystectomy History of heart valve replacement Family History Sister Myocardial infarction Mother Diabetes Heart disease Father Heart disease Brother Hypertension Cancer of kidney Social History Preferred Language: German Communication Ability: Impaired Communication Ability Comment: history of Alzheimer's [employer] Required: No Beliefs That Will Affect Care: None marital status: Current Living Situation: Spouse Other Information That Helps Us Care for You: No Feels Safe at Home: Yes Safety Concerns: Feels Safe At This Time Smoking Status: Never smoker Do You Dip or Chew Tobacco: No ; Second Hand Exposure: No ; Tobacco Cessation Education Requested by Patient: No Hx Alcohol Use: No Hx Substance Use: No Results & Data Vital Signs (Past 12 Hours) Vital Signs Temp Pulse Resp BP Pulse Ox 02/13/20 07:00 36.3 C L 78 16 174/79 H 96 02/13/20 03:40 170/82 H Coding Level of Care Code 89622 Inpt Consult Level 3 Diagnoses Goals of care, counseling/discussion Z71.89 Abdominal pain R10.9 Large bowel obstruction K56.609 Altered mental status R41.82 Time Spent (min) 70 Time Spent Midlevel A total of 70 minutes spent by this SH[employer] in reviewing chart, speaking with attending and palliative MDs, speaking with case management re: discharge planning, and speaking with patient's family re: goals of care and home hospice.
--- NOTE | 2020-02-13 14:05 | Discharge Summary ---
Date of Service February 13, 2020 Admission HPI Per Admitting Provider 79yo W w/ advanced dementia who presents for abdominal pain and diarrhea. Per her , she has had a poor appetite for approx. 1 month. She was seen in the ED in 12/2019 for constipation, after not having a BM for approx. 2 weeks. During that evaluation, she had a KUB which did not show any concerning findings, and she was discharged. Since then, she has continued to fair poorly at home and really still only eats 1/4 or less of what her considers a normal meal. He notes that she continues to have a soft, non-formed BM about once every week. He denies any blood or melena in the stool. He notes she had a BM last night that was consistent with her usual. Around 6am this morning, the patient reported abdominal pain to her . He reports she was unable to specify where the pain was, but just motioned "all over" the belly. Given her distress, she was unable to qualify the pain or specify how severe it was. He notes that she also sometimes gets shortness of breath when getting up and getting around in the morning. On my exam, the patient was obtunded and unable to be aroused even with verbal and physical stimuli. Principal Diagnosis Colonic obstruction, constipation Discharge Exam Constitutional well developed, + thin and + frail appearing; no acute distress Eyes PERRL, conjunctivae normal, anicteric sclerae ENMT external ear and nose normal, oropharynx normal Neck trachea midline, no thyromegaly Respiratory normal respiratory effort, lungs clear to auscultation Cardiovascular RRR, no murmur, no edema Gastrointestinal (Abdomen) Inspection/Auscultation: + abdomen distended and normal bowel sounds Percussion/Palpation: abdomen soft; abdomen nontender, no guarding and abdomen not rigid Musculoskeletal Head/Neck/Chest: normocephalic and head atraumatic Extremities: extremities normal to inspection, + abnormal strength (generalized weakness, cannot stand or transfer) and + muscle atrophy; no cyanosis and no clubbing Skin no rashes, warm and dry Neurologic patellar DTR's 2+ bilat, sensation intact and PERRL, EOMI, accommodation nl, no face palsy, no dysarthria Psychiatric Orientation: alert, oriented to person and + guarded; + not oriented to place and + not oriented to time Lymphatic no cervical or axillary lymphadenopathy Discharge Data Allergies Allergy/AdvReac Type Severity Reaction Status Date / Time trazodone Allergy Mild rash Unverified 02/10/20 10:07 citalopram [From Celexa] Allergy Unknown Unknown Unverified 02/10/20 10:07 clonazepam [From Klonopin] Allergy Unknown Unknown Unverified 02/10/20 10:07 Sulfa (Sulfonamide Allergy Unknown Unknown Unverified 02/10/20 10:07 Antibiotics) olmesartan [From Benicar] AdvReac Mild GI upset Unverified 02/10/20 10:07 penicillin G AdvReac Mild GI UPSET Verified 02/10/20 10:07 Consultations 02/10/20 11:49 ED Decision to Admit Stat 02/10/20 13:44 Consult Case Management - Discharge Planning Routine Consult Gastroenterology Routine Consult Palliative Care Routine Ordered Studies 02/10/20 08:46 CT abd pelvis IV con only Stat 02/10/20 16:25 US abdomen limited Routine 02/13/20 11:52 [place] barium enema Urgent Hospital Course (1) Large bowel obstruction: CT a/p on 02/09 shows a transition point at the proximal descending colon, representing colonic pseudoobstruction or mechanical large bowel obstruction. From 's report and ED visit in 12/2019, this seems like it may have been going on for several months with her BMs representing whatever could pass the obstruction. * Concerning for colonic malignancy as she has never had a colonoscopy per the barium enema on 02/12: no evidence of mass CEA level normal which is re-assuring discussed with patient's Michael, explained we could still perform colonoscopy for decompression he did not want any further procedures, wants to take patient home on hospice this was discussed with palliative care as well on consultation updated CM, they will arrange for home hospice services with [facility] (2) Parenchymal liver disease: * CT a/p on 02/09 shows "heterogeneity of the liver parenchyma" which could be related to right heart dysfunction. I do wonder if this could also be related to metastasis if she has a colon cancer causing her obstruction. * Indications on labs of liver dysfunction on admission, with INR 2.0, plts 94, though AST/ALT are 18/12. T bili down to 1.5 from 2.2 * Liver ultrasound obtained --> nondiagnostic study due to overlying bowel content * no further work up, home on hospice, comfort is goal (3) Hyponatremia: * Has long-standing baseline hyponatremia of unknown origin. and patient have declined evaluation in the past. * Urine osms low at 456 * Increased IVF to 100ml/hr * Na improved to 130 from 126, no further work up, comfort care (4) HTN (hypertension): * Stable. Not on any home medications * BP currently 128/71 * Continue to monitor (5) Hypothyroidism: * No indication of hyper-/hypothyroidism. TSH was 2.0 in 11/2019. * TSH 0.538 * Continue home levothyroxine 50 mcg (6) Altered mental status: * Pt with underlying dementia. Per outpatient chart, patient did not want further work-up. * Increasingly lethargy on 02/11. Blood glucose 25. Given dextrose. Added D5 to I VF * much better on 02/12, d/c to home on hospice (7) Dementia: * Cognitive status much improved * Per , at baseline she often forgets where she is (even at home). She cannot feed herself anymore. Per his report, dementia seems very advanced. He and his have declined evaluation for it. 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 * No acute concerns Total Time Total Time Spent Total Time Spent (In Minutes): 31 minutes Total Time Includes: Examination of the Patient, Discharge Planning, Medication Reconciliation, Communication With Other Providers (discussed with Francia Clements, palliative care) and Other (two separate phone calls with patient's Michael) Discharge Plan Discharge Items Patient Disposition: Hospice - Home Reason For Visit: stomach pain Discharge Diagnosis: Constipation, colonic obstruction Condition on Discharge: Good Goals: comfort care, hospice at home Activity: Resume your previous activity Non-emergency contact: Primary Care Provider Call non-emergency contact if: you have any medication questions Follow-up/Referrals: Shane German MD [Primary Care Provider] - Diet: Regular Addtl Attending Provider Instructions: Medications: no changes plans to keep patient at home, keep comfortable case management arranged for [facility] home hospice for home services colonic obstruction: temporarily relieved, may happen again no evidence of colon tumor on barium x-ray and tumor marker in serum was normal which argues against this being a tumor try to keep patient well hydrated Pending Studies at Discharge: No Stand-Alone Forms: My [facility] Medications and DC Order Prescriptions: Continued levothyroxine 75 mcg tablet 75 mcg PO QAM RF: 0 cholecalciferol (vitamin D3) [Vitamin D3] 50 mcg (2,000 unit) Capsule 50 mcg PO QAM RF: 0 Discharge Orders: Discharge Order (Routine); Ordered 02/13/20 Ordered By: Antony Akhtar Admission Data Admit Date/Time: 02/10/20 12:23 Attending Provider: Antony Akhtar Admit Provider: Jayden Stevenson Primary Care Provider: Shane German Other Providers: Jayden Stevenson ; Gautam Jaffe ; Leigh Ann Browning ; [facility],Home Healthcare Other Interventions: Discharge Summary Assessment (RN) Last Done: 02/13/20 14:33 DC Date/Time DO NOT enter until pt leaves facility: 02/13/20 15:00 Coding Level of Care Code D/C Day Management >30 mins Diagnoses Large bowel obstruction K56.609 Parenchymal liver disease K76.9 Hyponatremia E87.1 HTN (hypertension) I10 Hypertension type: essential hypertension Hypothyroidism E03.9 Hypothyroidism type: acquired Altered mental status R41.82 Dementia F03.90 Hypomagnesemia E83.42 Hypophosphatemia E83.39 Mitral valve replaced Z95.2
--- NOTE | 2020-02-13 16:00 | Progress Notes ---
DATE: 02/13/2020 The patient underwent a Gastrografin enema of the left side of her colon today. The exam was limited by the patient's poor cooperation, but other than some significant sigmoid diverticulosis there was no obvious obstruction or tumor in the rectosigmoid area or in the distal descending colon. I did have a conversation with the patient's following this examination on the phone and he reiterated that he did not want the patient to undergo any form of invasive procedures including endoscopic evaluation or any form of surgery and that he would like to take the patient home for palliation and possible hospice care. IMPRESSION: The patient has colonic distention of unclear etiology. No further intervention is indicated or requested by the patient's or the patient and the patient will be sent home today for palliative care at home. No further intervention is necessary per GI.
== END 2020-02-13 15:00 | disposition hospice, home (50) ==
LOC: ED 08:15 → 3E 12:23 → INTOOBSV 12:23 → SUATTDRO 12:23 → 3E 13:28